=== PATIENT | male | born 1945 | race Caucasian/White ===

== ENCOUNTER 2021-09-18 16:51 | Inpatient (IN) ==
[2021-09-18] MEDS ORDERED: Isovue-370 500 ML BOTTLE IVP ONE (17:34)
[2021-09-18 18:18] LABS: VBG HCO3 22 mEq/L (21-27); VBG PCO2 37 mmHg (41-51); VBG PH 7.38 pH Units (7.32-7.42); VBG PO2 45 mmHg (25-50)
[2021-09-18 18:18] LABS: Basophils % 0.3 %; Eosinophils # 0.2 K/mcL (0.0-0.6); Eosinophils % 1.7 %; Hematocrit 36.2 % (37.5-50.1); Hemoglobin 11.6 g/dL (12.9-16.9); Immature Granulocytes % 1.2 % (0-4); Lymphocytes # 2.3 K/mcL (0.6-4.6); Lymphocytes % 22.4 %; Mean Corpuscular Hemoglobin 28.6 pg (28.0-33.3); Mean Corpuscular Volume 89.4 fL (83.0-100.0); Mean Platelet Volume 10.8 fL (9.4-12.4); Monocytes # 0.8 K/mcL (0.0-1.3); Monocytes % 8.2 %; Neutrophils # 6.7 K/mcL (1.6-8.9); Platelet Count 207 K/mcL (140-400); Red Blood Count 4.05 M/mcL (4.19-5.50); Red Cell Distribution Width 13.8 % (11.5-14.5); Segmented Neutrophils % 66.2 %; White Blood Count 10.1 K/mcL (4.3-11.1)
[2021-09-18 18:33] LABS: Prothrombin Time 11.6 Seconds (9.4-12.1)
[2021-09-18 18:36] LABS: Activated Partial Thrombo Time 30.7 Seconds (26.0-36.0)
[2021-09-18 18:37] LABS: Albumin 3.7 g/dL (3.5-5.7); Albumin/Globulin Ratio 1.5 (1.1-2.2); Bilirubin,Direct 0.1 mg/dL (0.0-0.2); Bilirubin,Indirect 0.3 mg/dL (0.0-1.0); Bilirubin,Total 0.4 mg/dL (0.3-1.0); Calcium 9.7 mg/dL (8.6-10.3); Globulin 2.5 g/dL (2.4-3.5); Potassium 5.2 mEq/L (3.5-5.1); Total Protein 6.2 g/dL (6.4-8.9)
[2021-09-18] MEDS ORDERED: 0.9 % Sodium Chloride 1,000 ML IV ONE (18:52)
[2021-09-18] MEDS ORDERED: Naloxone 0.4 MG/ML INJ IVP PRN (21:01)
[2021-09-18] MEDS ORDERED: Melatonin 3 MG TABLET PO PRN (21:01)
[2021-09-18] MEDS ORDERED: Acetaminophen 325 MG TABLET PO PRN (21:01)
[2021-09-18] MEDS ORDERED: Ondansetron ODT 4 MG TAB.RAPDIS SL PRN (21:01)
[2021-09-18] MEDS ORDERED: 0.9 % Sodium Chloride 1,000 ML IVC ONE (22:09)
[2021-09-18] MEDS ORDERED: D5% in Water 1,000 ML IVC PRN (22:29)
[2021-09-18] MEDS ORDERED: *HR* Dextrose 50 % in Water (Syg) 50 ML SYRINGE IVP PRN (22:29)
[2021-09-18] MEDS ORDERED: Dextrose Gel 15 GM/37.5 ML TUBE PO PRN ×2 (22:29)
[2021-09-18] MEDS: 0.9 % Sodium Chloride 1,000 ML IVC SCH (23:57)
[2021-09-18] MEDS: Piperacillin/Tazobactam 3.375 GM in 0.9 % Sodium Chloride Mini Bag 100 ML IVPB SCH (23:57)
[2021-09-19 01:22] LABS: Bilirubin,Urine Negative (Negative); Blood,Urine Large (Negative); Clarity,Urine Slightly Cloudy (Clear); Color,Urine Red (Yellow); Glucose,Urine (UA) Normal (Normal); Ketones,Urine Negative (Negative); Leukocyte Esterase,Urine Negative (Negative); Nitrite,Urine Negative (Negative); PH,Urine 6.5 pH Units (5.0-8.0); Protein,Urine 100 mg/dL (Neg-Trace); Urobilinogen,Urine Normal (Normal)
[2021-09-19] MEDS: Insulin LISPRO 300 UNITS/3 ML VIAL SUBQ SCH ×5 (01:55→16:29)
[2021-09-19 02:15] LABS: Creatinine,Urine < 1 mg/dL; Sodium, Urine 148.5 mEq/L
[2021-09-19 03:20] LABS: Basophils % 0.3 %; Eosinophils # 0.1 K/mcL (0.0-0.6); Eosinophils % 0.4 %; Hematocrit 31.5 % (37.5-50.1); Lymphocytes # 2.6 K/mcL (0.6-4.6); Lymphocytes % 18.9 %; Mean Corpuscular HGB Conc 30.8 g/dL (31.6-35.5); Mean Corpuscular Hemoglobin 28.1 pg (28.0-33.3); Mean Corpuscular Volume 91.3 fL (83.0-100.0); Mean Platelet Volume 11.5 fL (9.4-12.4); Neutrophils # 9.8 K/mcL (1.6-8.9); Platelet Count 251 K/mcL (140-400); Red Blood Count 3.45 M/mcL (4.19-5.50); Segmented Neutrophils % 72.4 %; White Blood Count 13.6 K/mcL (4.3-11.1)
[2021-09-19 03:21] LABS: Hemoglobin 9.7 g/dL (12.9-16.9)
[2021-09-19 03:34] LABS: Calcium 8.7 mg/dL (8.6-10.3); Potassium 6.1 mEq/L (3.5-5.1)
[2021-09-19 08:44] LABS: Hemoglobin 9.2 g/dL (12.9-16.9)
[2021-09-19] MEDS ORDERED: lisinopriL 20 MG TABLET PO SCH (09:00)
[2021-09-19] MEDS ORDERED: Aspirin Enteric Coated 81 MG Tablet PO SCH (09:00)
[2021-09-19 09:04] LABS: Calcium 8.7 mg/dL (8.6-10.3); Potassium 5.7 mEq/L (3.5-5.1)
[2021-09-19] MEDS: Gabapentin 300 MG CAPSULE PO SCH ×2 (10:08→20:44)
[2021-09-19] MEDS: Fluconazole 100 MG TABLET PO SCH (10:08)
[2021-09-19] MEDS: Finasteride 5 MG TABLET PO SCH (10:09)
[2021-09-19] MEDS: Piperacillin/Tazobactam 3.375 GM in 0.9 % Sodium Chloride Mini Bag 100 ML IVPB SCH ×2 (10:09→16:28)
[2021-09-19] MEDS: Primidone 50 MG TABLET PO SCH (10:09)
[2021-09-19] MEDS: Insulin DETEMIR 100 UNIT/ML X5UNITS SUBQ SCH ×2 (12:14→20:43)
[2021-09-19] MEDS: 0.9 % Sodium Chloride 1,000 ML IVC SCH (16:49)
[2021-09-19] MEDS ORDERED: Fenofibrate 54 MG TABLET PO SCH (21:00)
[2021-09-20] MEDS: Piperacillin/Tazobactam 3.375 GM in 0.9 % Sodium Chloride Mini Bag 100 ML IVPB SCH ×2 (00:07→10:49)
[2021-09-20] MEDS ORDERED: Albumin 25% 25gram/100mL 25 GM/100 ML IV.SOLN IVPB ONE (03:49)
[2021-09-20 04:22] LABS: Basophils % 0.3 %; Eosinophils # 0.1 K/mcL (0.0-0.6); Eosinophils % 1.2 %; Hematocrit 23.6 % (37.5-50.1); Hemoglobin 7.3 g/dL (12.9-16.9); Lymphocytes # 2.7 K/mcL (0.6-4.6); Mean Corpuscular HGB Conc 30.9 g/dL (31.6-35.5); Mean Corpuscular Hemoglobin 28.5 pg (28.0-33.3); Mean Platelet Volume 10.3 fL (9.4-12.4); Monocytes # 0.9 K/mcL (0.0-1.3); Monocytes % 8.1 %; Platelet Count 167 K/mcL (140-400); Red Blood Count 2.56 M/mcL (4.19-5.50); Red Cell Distribution Width 14.2 % (11.5-14.5); Segmented Neutrophils % 64.4 %; White Blood Count 10.9 K/mcL (4.3-11.1)
[2021-09-20 04:24] LABS: Mean Corpuscular Volume 92.2 fL (83.0-100.0)
[2021-09-20] MEDS: 0.9 % Sodium Chloride 1,000 ML IVC SCH ×2 (05:10→17:06)
[2021-09-20 05:13] LABS: Albumin 3.4 g/dL (3.5-5.7); Magnesium 1.8 mg/dL (1.6-2.6); Phosphorous 4.2 mg/dL (2.7-4.5); Potassium 5.2 mEq/L (3.5-5.1)
[2021-09-20] MEDS ORDERED: 0.9 % Sodium Chloride 500 ML IVC ONE (10:44)
[2021-09-20] MEDS: Gabapentin 300 MG CAPSULE PO SCH (10:45)
[2021-09-20] MEDS: Insulin LISPRO 300 UNITS/3 ML VIAL SUBQ SCH ×3 (10:55→17:58)
[2021-09-20] MEDS: Fluconazole 100 MG TABLET PO SCH (10:56)
[2021-09-20] MEDS: Primidone 50 MG TABLET PO SCH (10:56)
[2021-09-20] MEDS: Finasteride 5 MG TABLET PO SCH (10:56)
[2021-09-20] MEDS: Insulin DETEMIR 100 UNIT/ML X5UNITS SUBQ SCH ×2 (11:01→21:42)
[2021-09-20 19:17] LABS: Sodium, Urine 59.2 mEq/L
[2021-09-20 21:14] LABS: Hematocrit 25.8 % (37.5-50.1); Hemoglobin 7.9 g/dL (12.9-16.9)
[2021-09-21 03:10] LABS: Basophils % 0.1 %; Eosinophils # 0.1 K/mcL (0.0-0.6); Hematocrit 23.6 % (37.5-50.1); Hemoglobin 7.5 g/dL (12.9-16.9); Immature Granulocytes % 0.8 % (0-4); Lymphocytes # 2.4 K/mcL (0.6-4.6); Lymphocytes % 34.2 %; Mean Corpuscular HGB Conc 31.8 g/dL (31.6-35.5); Mean Corpuscular Hemoglobin 28.8 pg (28.0-33.3); Mean Corpuscular Volume 90.8 fL (83.0-100.0); Mean Platelet Volume 10.8 fL (9.4-12.4); Monocytes # 0.6 K/mcL (0.0-1.3); Monocytes % 8.3 %; Neutrophils # 3.9 K/mcL (1.6-8.9); Platelet Count 141 K/mcL (140-400); Red Cell Distribution Width 13.7 % (11.5-14.5); Segmented Neutrophils % 54.6 %; White Blood Count 7.1 K/mcL (4.3-11.1)
[2021-09-21 03:25] LABS: Calcium 7.9 mg/dL (8.6-10.3); Magnesium 1.9 mg/dL (1.6-2.6); Phosphorous 2.6 mg/dL (2.7-4.5); Potassium 4.8 mEq/L (3.5-5.1)
[2021-09-21] MEDS: 0.9 % Sodium Chloride 1,000 ML IVC SCH ×2 (06:09→23:15)
[2021-09-21] MEDS: Fluconazole 100 MG TABLET PO SCH (08:04)
[2021-09-21] MEDS: Primidone 50 MG TABLET PO SCH (08:05)
[2021-09-21] MEDS: Finasteride 5 MG TABLET PO SCH (08:05)
[2021-09-21] MEDS: Insulin LISPRO 300 UNITS/3 ML VIAL SUBQ SCH ×3 (08:06→16:49)
[2021-09-21] MEDS: Insulin DETEMIR 100 UNIT/ML X5UNITS SUBQ SCH (08:06)
[2021-09-21] MEDS ORDERED: Gabapentin 300 MG CAPSULE PO SCH (09:00)
[2021-09-21] MEDS ORDERED: Aspirin 81 MG TAB.CHEW PO SCH (09:00)
[2021-09-21 18:00] LABS: Hematocrit 24.6 % (37.5-50.1); Hemoglobin 7.9 g/dL (12.9-16.9)
[2021-09-21] MEDS ORDERED: Lidocaine HCL 4 ML Topical Solution (Laryng-O-Jet Kit Sterile Pak) TP ONE (19:07)
[2021-09-21] MEDS ORDERED: *HR* FentaNYL (PF) 100 MCG/2 ML VIAL ONE (19:09)
[2021-09-21] MEDS ORDERED: *HR* Propofol 200 MG/20 ML VIAL IVP ONE (19:09)
[2021-09-21] MEDS ORDERED: *HR* Succinylcholine 200 MG/10 ML VIAL IVP ONE (19:11)
[2021-09-21] MEDS ORDERED: Lidocaine -MPF 2% 5 ML VIAL ONE (19:11)
[2021-09-21] MEDS ORDERED: *HR* Rocuronium Bromide 50 MG/5 ML VIAL ONE (19:11)
[2021-09-21] MEDS ORDERED: Ondansetron 4 MG/2 ML VIAL ONE (19:11)
[2021-09-21] MEDS ORDERED: Acetaminophen IV 1,000 MG/100 ML BAG IVPB ONE (19:15)
[2021-09-21] MEDS ORDERED: *HR* Vasopressin 20 UNIT/ML VIAL ONE (19:15)
[2021-09-21] MEDS ORDERED: ceFAZolin 2,000 MG in Water for inj. (sterile) 20 ML IVP ONE (19:16)
[2021-09-21] MEDS ORDERED: *HR* Etomidate 40 MG/20 ML VIAL IVP ONE (19:23)
[2021-09-21] MEDS ORDERED: Sugammadex Sodium 200 MG/2 ML VIAL IV ONE (19:48)
[2021-09-21] MEDS ORDERED: Insulin Human Regular 10 UNIT in 0.9 % Sodium Chloride 10 ML SUBQ ONE (20:28)
[2021-09-21] MEDS ORDERED: Insulin Regular, Human 100 UNIT/ML SUBQ ONE (20:47)
[2021-09-21] MEDS ORDERED: Insulin DETEMIR 100 UNIT/ML X5UNITS SUBQ SCH (21:00)
[2021-09-21] MEDS ORDERED: Dextrose Gel 15 GM/37.5 ML TUBE PO PRN ×2 (21:25)
[2021-09-21] MEDS ORDERED: Acetaminophen 325 MG TABLET PO PRN (21:25)
[2021-09-21] MEDS ORDERED: D5% in Water 1,000 ML IVC PRN (21:25)
[2021-09-21] MEDS ORDERED: *HR* Dextrose 50 % in Water (Syg) 50 ML SYRINGE IVP PRN (21:25)
[2021-09-21] MEDS ORDERED: Ondansetron ODT 4 MG TAB.RAPDIS SL PRN (21:25)
[2021-09-21] MEDS ORDERED: Melatonin 3 MG TABLET PO PRN (21:25)
[2021-09-21] MEDS ORDERED: Naloxone 0.4 MG/ML INJ IVP PRN (21:25)
[2021-09-21] MEDS ORDERED: 0.9 % Sodium Chloride 1,000 ML IVC SCH (21:25)
[2021-09-21 22:06] LABS: Hematocrit 25.4 % (37.5-50.1); Hemoglobin 8.1 g/dL (12.9-16.9); Mean Corpuscular HGB Conc 31.9 g/dL (31.6-35.5); Mean Corpuscular Hemoglobin 29.5 pg (28.0-33.3); Mean Corpuscular Volume 92.4 fL (83.0-100.0); Mean Platelet Volume 11.4 fL (9.4-12.4); Platelet Count 151 K/mcL (140-400); Red Blood Count 2.75 M/mcL (4.19-5.50); Red Cell Distribution Width 13.7 % (11.5-14.5); White Blood Count 9.5 K/mcL (4.3-11.1)
[2021-09-22 06:01] LABS: Hematocrit 25.9 % (37.5-50.1); Hemoglobin 8.6 g/dL (12.9-16.9); Mean Corpuscular HGB Conc 33.2 g/dL (31.6-35.5); Mean Corpuscular Hemoglobin 30.2 pg (28.0-33.3); Mean Corpuscular Volume 90.9 fL (83.0-100.0); Mean Platelet Volume 11.4 fL (9.4-12.4); Platelet Count 164 K/mcL (140-400); Red Blood Count 2.85 M/mcL (4.19-5.50); Red Cell Distribution Width 13.6 % (11.5-14.5)
[2021-09-22 06:13] LABS: BUN/Creatinine Ratio 20 (6-26); Blood Urea Nitrogen 19 mg/dL (8-23); Calcium 8.2 mg/dL (8.6-10.3); Carbon Dioxide 24 mEq/L (23-29); Chloride 103 mEq/L (98-107); Glucose 252 mg/dL (70-105); Osmolality,Calculated 285 (280-300); Potassium 5.2 mEq/L (3.5-5.1); Sodium 132 mEq/L (136-145); eGFR For African Americans > 60 (> 60); eGFR For Non-African Americans > 60 (> 60)
[2021-09-22] MEDS ORDERED: Insulin LISPRO 300 UNITS/3 ML VIAL SUBQ SCH (07:30)
[2021-09-22] MEDS ORDERED: Fluconazole 100 MG TABLET PO SCH (09:00)
[2021-09-22] MEDS ORDERED: Primidone 50 MG TABLET PO SCH (09:00)
[2021-09-22] MEDS ORDERED: Gabapentin 300 MG CAPSULE PO SCH (09:00)
[2021-09-22] MEDS ORDERED: Insulin DETEMIR 100 UNIT/ML X5UNITS SUBQ SCH (09:00)
[2021-09-22] MEDS ORDERED: cefTRIAXone 1,000 MG in Water for inj. (sterile) 10 ML IVP SCH (09:00)
[2021-09-22] MEDS ORDERED: Finasteride 5 MG TABLET PO SCH (09:00)
[2021-09-22 11:24] VITALS: TEMP 98.6
[2021-09-22 11:56] VITALS: BP 108/64; PULSE 83; O2SAT 94
== END 2021-09-22 15:51 | disposition home health service (06) | DRG 666 ==
LOC: EMEROOARM 16:51 → 3ANU 16:51 → SUATTDRO 20:03 → 3ANU 21:58
PROVIDERS: ADMIT Internal Medicine; ATTEND Internal Medicine

== ENCOUNTER 2021-10-13 16:39 | Inpatient (IN) ==
[2021-10-13] MEDS ORDERED: Naloxone 0.4 MG/ML INJ IVP PRN (18:44)
[2021-10-13 19:38] LABS: BUN/Creatinine Ratio 39 (6-26); Blood Urea Nitrogen 49 mg/dL (8-23); Calcium 8.8 mg/dL (8.6-10.3); Carbon Dioxide 16 mEq/L (23-29); Chloride 100 mEq/L (98-107); Creatine Kinase 534 Units/L (30-223); Glucose 245 mg/dL (70-105); Osmolality,Calculated 301 (280-300); Potassium 4.4 mEq/L (3.5-5.1); Sodium 135 mEq/L (136-145); eGFR For African Americans > 60 (> 60); eGFR For Non-African Americans 55 (> 60)
[2021-10-13] MEDS ORDERED: 0.9 % Sodium Chloride 1,000 ML IVC SCH (20:00)
[2021-10-13 20:03] LABS: Hematocrit 37.5 % (37.5-50.1); Hemoglobin 11.1 g/dL (12.9-16.9); Mean Corpuscular HGB Conc 29.6 g/dL (31.6-35.5); Mean Corpuscular Hemoglobin 27.2 pg (28.0-33.3); Mean Corpuscular Volume 91.9 fL (83.0-100.0); Mean Platelet Volume 11.7 fL (9.4-12.4); Platelet Count 202 K/mcL (140-400); Red Blood Count 4.08 M/mcL (4.19-5.50); Red Cell Distribution Width 13.8 % (11.5-14.5); White Blood Count 13.2 K/mcL (4.3-11.1)
[2021-10-13] MEDS ORDERED: *HR* Dextrose 50 % in Water (Syg) 50 ML SYRINGE IVP PRN (20:19)
[2021-10-13] MEDS ORDERED: Insulin Regular, Human 100 UNIT/ML IV PRN (20:19)
[2021-10-13] MEDS ORDERED: Vancomycin 1,500 MG/265 ML IV.SOLN IVPB ONE (21:00)
[2021-10-13] MEDS ORDERED: 0.45 % Sodium Chloride w/KCl 20 MEQ/1,000 ML MLS IVC SCH (21:00)
[2021-10-13] MEDS ORDERED: Potassium Chloride Elixir 20 MEQ/15 ML UDC PO STA (21:08)
[2021-10-13 21:41] LABS: Estimated Average Glucose 186 mg/dl; Hemoglobin A1C 8.1 %
[2021-10-13 21:51] LABS: INR 1.1; Prothrombin Time 12.2 Seconds (9.4-12.1)
[2021-10-13 21:53] LABS: VBG HCO3 16 mEq/L (21-27); VBG PCO2 35 mmHg (41-51); VBG PH 7.26 pH Units (7.32-7.42); VBG PO2 60 mmHg (25-50)
[2021-10-13 22:06] LABS: BUN/Creatinine Ratio 41 (6-26); Blood Urea Nitrogen 51 mg/dL (8-23); Calcium 8.7 mg/dL (8.6-10.3); Carbon Dioxide 16 mEq/L (23-29); Chloride 100 mEq/L (98-107); Glucose 242 mg/dL (70-105); Magnesium 2.1 mg/dL (1.6-2.6); Osmolality,Calculated 302 (280-300); Phosphorous 3.2 mg/dL (2.7-4.5); Potassium 4.6 mEq/L (3.5-5.1); Sodium 135 mEq/L (136-145); eGFR For African Americans > 60 (> 60); eGFR For Non-African Americans 57 (> 60)
[2021-10-13] MEDS ORDERED: Isovue-370 500 ML BOTTLE IVP ONE (22:39)
[2021-10-14] MEDS: D5% in 0.45% NACL w KCl 20 MEQ/1,000 ML MLS IVC SCH ×2 (00:27→06:07)
[2021-10-14] MEDS: Piperacillin/Tazobactam 3.375 GM in 0.9 % Sodium Chloride Mini Bag 100 ML IVPB SCH ×3 (00:31→17:42)
[2021-10-14 02:08] LABS: BUN/Creatinine Ratio 41 (6-26); Blood Urea Nitrogen 49 mg/dL (8-23); Calcium 8.4 mg/dL (8.6-10.3); Carbon Dioxide 22 mEq/L (23-29); Chloride 104 mEq/L (98-107); Glucose 87 mg/dL (70-105); Osmolality,Calculated 294 (280-300); Potassium 4.1 mEq/L (3.5-5.1); Sodium 136 mEq/L (136-145); eGFR For African Americans > 60 (> 60); eGFR For Non-African Americans 60 (> 60)
[2021-10-14 02:20] LABS: VBG HCO3 21 mEq/L (21-27); VBG PCO2 41 mmHg (41-51); VBG PH 7.31 pH Units (7.32-7.42); VBG PO2 75 mmHg (25-50)
[2021-10-14 03:18] LABS: Troponin I 0.06 ng/mL (< 0.04)
[2021-10-14 06:15] LABS: BUN/Creatinine Ratio 39 (6-26); Blood Urea Nitrogen 44 mg/dL (8-23); Calcium 8.2 mg/dL (8.6-10.3); Carbon Dioxide 23 mEq/L (23-29); Chloride 105 mEq/L (98-107); Glucose 118 mg/dL (70-105); Osmolality,Calculated 292 (280-300); Phosphorous 1.8 mg/dL (2.7-4.5); Potassium 4.5 mEq/L (3.5-5.1); Sodium 135 mEq/L (136-145); eGFR For African Americans > 60 (> 60); eGFR For Non-African Americans > 60 (> 60)
[2021-10-14 06:15] LABS: Basophils % 0.1 %; Eosinophils % 0.1 %; Hematocrit 30.1 % (37.5-50.1); Hemoglobin 9.5 g/dL (12.9-16.9); Immature Granulocytes % 0.3 % (0-4); Lymphocytes # 1.7 K/mcL (0.6-4.6); Mean Corpuscular HGB Conc 31.6 g/dL (31.6-35.5); Mean Corpuscular Hemoglobin 27.9 pg (28.0-33.3); Mean Corpuscular Volume 88.3 fL (83.0-100.0); Mean Platelet Volume 11.6 fL (9.4-12.4); Monocytes # 0.9 K/mcL (0.0-1.3); Monocytes % 11.8 %; Platelet Count 165 K/mcL (140-400); Red Blood Count 3.41 M/mcL (4.19-5.50); Red Cell Distribution Width 13.7 % (11.5-14.5); Segmented Neutrophils % 65.7 %; White Blood Count 7.7 K/mcL (4.3-11.1)
[2021-10-14] MEDS ORDERED: *HR* Dextrose 50 % in Water (Syg) 50 ML SYRINGE IVP PRN (06:19)
[2021-10-14] MEDS ORDERED: Dextrose Gel 15 GM/37.5 ML TUBE PO PRN ×2 (06:19)
[2021-10-14] MEDS ORDERED: Insulin DETEMIR 100 UNIT/ML X5UNITS SUBQ STA (07:43)
[2021-10-14] MEDS: Finasteride 5 MG TABLET PO SCH (08:40)
[2021-10-14] MEDS: Aspirin Enteric Coated 81 MG Tablet PO SCH (08:41)
[2021-10-14] MEDS: lisinopriL 20 MG TABLET PO SCH (08:41)
[2021-10-14] MEDS: Gabapentin 300 MG CAPSULE PO SCH ×2 (08:41→20:42)
[2021-10-14] MEDS: Metoprolol XL (24 HR) Succ 25 MG TAB.ER.24H PO SCH (08:41)
[2021-10-14] MEDS: Lactobacillus 1 EACH CAP.SPRINK PO SCH ×2 (08:41→20:42)
[2021-10-14] MEDS ORDERED: Aspirin 81 MG TAB.CHEW PO SCH (09:00)
[2021-10-14] MEDS ORDERED: Lactobacillus 1 EACH CAP.SPRINK PO SCH (09:00)
[2021-10-14] MEDS: Insulin LISPRO 300 UNITS/3 ML VIAL SUBQ SCH ×3 (17:16→17:41)
[2021-10-14] MEDS: Ipratropium/Albuterol Neb 3 ML IH SCH ×2 (19:42→23:18)
[2021-10-14] MEDS: Fenofibrate 54 MG TABLET PO SCH (20:42)
[2021-10-14] MEDS: Insulin DETEMIR 100 UNIT/ML X5UNITS SUBQ SCH (20:43)
[2021-10-14] MEDS ORDERED: Vancomycin 1,250 MG/262.5 ML IV.SOLN IVPB SCH (21:00)
[2021-10-14] MEDS ORDERED: Insulin DETEMIR 100 UNIT/ML X5UNITS SUBQ SCH (21:00)
[2021-10-15] MEDS: Piperacillin/Tazobactam 3.375 GM in 0.9 % Sodium Chloride Mini Bag 100 ML IVPB SCH ×3 (00:12→18:52)
[2021-10-15] MEDS: Ipratropium/Albuterol Neb 3 ML IH SCH ×5 (04:03→20:36)
[2021-10-15] MEDS: Lactobacillus 1 EACH CAP.SPRINK PO SCH ×2 (09:37→21:32)
[2021-10-15] MEDS: Metoprolol XL (24 HR) Succ 25 MG TAB.ER.24H PO SCH (09:37)
[2021-10-15] MEDS: Gabapentin 300 MG CAPSULE PO SCH ×2 (09:37→21:33)
[2021-10-15] MEDS: Aspirin Enteric Coated 81 MG Tablet PO SCH (09:37)
[2021-10-15] MEDS: lisinopriL 20 MG TABLET PO SCH (09:37)
[2021-10-15] MEDS: Insulin LISPRO 300 UNITS/3 ML VIAL SUBQ SCH ×5 (09:38→18:52)
[2021-10-15] MEDS: Finasteride 5 MG TABLET PO SCH (09:38)
[2021-10-15] MEDS: Fenofibrate 54 MG TABLET PO SCH (21:32)
[2021-10-15] MEDS: Insulin DETEMIR 100 UNIT/ML X5UNITS SUBQ SCH (21:42)
[2021-10-16] MEDS: Piperacillin/Tazobactam 3.375 GM in 0.9 % Sodium Chloride Mini Bag 100 ML IVPB SCH (00:53)
[2021-10-16] MEDS: Ipratropium/Albuterol Neb 3 ML IH SCH ×7 (04:54→23:55)
[2021-10-16] MEDS ORDERED: Cefepime HCl 2,000 MG in 0.9 % Sodium Chloride Mini Bag 100 ML IVPB SCH (07:45)
[2021-10-16 08:04] LABS: Basophils % 0.2 %; Eosinophils % 0.4 %; Hematocrit 31.1 % (37.5-50.1); Hemoglobin 9.4 g/dL (12.9-16.9); Immature Granulocytes % 0.2 % (0-4); Lymphocytes # 2.1 K/mcL (0.6-4.6); Lymphocytes % 39.5 %; Mean Corpuscular HGB Conc 30.2 g/dL (31.6-35.5); Mean Corpuscular Hemoglobin 27.1 pg (28.0-33.3); Mean Corpuscular Volume 89.6 fL (83.0-100.0); Mean Platelet Volume 11.6 fL (9.4-12.4); Monocytes # 0.5 K/mcL (0.0-1.3); Monocytes % 8.6 %; Neutrophils # 2.7 K/mcL (1.6-8.9); Platelet Count 126 K/mcL (140-400); Red Blood Count 3.47 M/mcL (4.19-5.50); Red Cell Distribution Width 13.3 % (11.5-14.5); Segmented Neutrophils % 51.1 %; White Blood Count 5.2 K/mcL (4.3-11.1)
[2021-10-16 08:15] LABS: BUN/Creatinine Ratio 25 (6-26); Blood Urea Nitrogen 19 mg/dL (8-23); Calcium 8.4 mg/dL (8.6-10.3); Carbon Dioxide 27 mEq/L (23-29); Chloride 104 mEq/L (98-107); Glucose 214 mg/dL (70-105); Osmolality,Calculated 293 (280-300); Sodium 137 mEq/L (136-145); eGFR For African Americans > 60 (> 60); eGFR For Non-African Americans > 60 (> 60)
[2021-10-16] MEDS: levoFLOXacin 750 MG/150 ML 750 MG/150 ML BAG IVPB SCH (09:20)
[2021-10-16] MEDS: Finasteride 5 MG TABLET PO SCH (09:21)
[2021-10-16] MEDS: Aspirin Enteric Coated 81 MG Tablet PO SCH (09:21)
[2021-10-16] MEDS: Lactobacillus 1 EACH CAP.SPRINK PO SCH ×2 (09:21→20:06)
[2021-10-16] MEDS: Insulin LISPRO 300 UNITS/3 ML VIAL SUBQ SCH ×7 (09:21→23:22)
[2021-10-16] MEDS: lisinopriL 20 MG TABLET PO SCH (09:21)
[2021-10-16] MEDS: Gabapentin 300 MG CAPSULE PO SCH ×2 (09:21→20:06)
[2021-10-16] MEDS: Metoprolol XL (24 HR) Succ 25 MG TAB.ER.24H PO SCH (09:21)
[2021-10-16] MEDS: Fenofibrate 54 MG TABLET PO SCH (20:06)
[2021-10-16] MEDS: Insulin DETEMIR 100 UNIT/ML X5UNITS SUBQ SCH (20:07)
[2021-10-16] MEDS ORDERED: D5% in Water 1,000 ML IVC PRN (22:51)
[2021-10-16] MEDS ORDERED: *HR* Dextrose 50 % in Water (Syg) 50 ML SYRINGE IVP PRN (22:51)
[2021-10-16] MEDS ORDERED: Dextrose Gel 15 GM/37.5 ML TUBE PO PRN ×2 (22:51)
[2021-10-16] MEDS: traZODone 50 MG TABLET PO PRN (23:56)
[2021-10-17] MEDS: Ipratropium/Albuterol Neb 3 ML IH SCH ×6 (03:35→23:23)
[2021-10-17 05:25] LABS: Immature Granulocytes % 0.5 % (0-4); Monocytes % 7.5 %; Red Cell Distribution Width 13.2 % (11.5-14.5)
[2021-10-17 05:28] LABS: Basophils % 0.3 %; Eosinophils # 0.1 K/mcL (0.0-0.6); Eosinophils % 0.9 %; Hemoglobin 10.2 g/dL (12.9-16.9); Immature Platelets 6.5 % (1.1-6.1); Lymphocytes % 49.3 %; Mean Corpuscular HGB Conc 30.9 g/dL (31.6-35.5); Mean Corpuscular Hemoglobin 27.7 pg (28.0-33.3); Mean Corpuscular Volume 89.7 fL (83.0-100.0); Mean Platelet Volume 11.2 fL (9.4-12.4); Monocytes # 0.5 K/mcL (0.0-1.3); Platelet Count 140 K/mcL (140-400); Red Blood Count 3.68 M/mcL (4.19-5.50); Segmented Neutrophils % 41.5 %; White Blood Count 6.4 K/mcL (4.3-11.1)
[2021-10-17 05:47] LABS: Lymphocytes # 3.2 K/mcL (0.6-4.6); Neutrophils # 2.7 K/mcL (1.6-8.9)
[2021-10-17 06:21] LABS: BUN/Creatinine Ratio 15 (6-26); Blood Urea Nitrogen 15 mg/dL (8-23); Calcium 9.3 mg/dL (8.6-10.3); Carbon Dioxide 33 mEq/L (23-29); Chloride 104 mEq/L (98-107); Glucose 192 mg/dL (70-105); Osmolality,Calculated 300 (280-300); Potassium 4.3 mEq/L (3.5-5.1); Sodium 142 mEq/L (136-145); eGFR For African Americans > 60 (> 60); eGFR For Non-African Americans > 60 (> 60)
[2021-10-17] MEDS: lisinopriL 20 MG TABLET PO SCH (08:42)
[2021-10-17] MEDS: Lactobacillus 1 EACH CAP.SPRINK PO SCH ×2 (08:42→20:43)
[2021-10-17] MEDS: Finasteride 5 MG TABLET PO SCH (08:42)
[2021-10-17] MEDS: Gabapentin 300 MG CAPSULE PO SCH ×2 (08:42→20:42)
[2021-10-17] MEDS: Aspirin Enteric Coated 81 MG Tablet PO SCH (08:43)
[2021-10-17] MEDS: Primidone 50 MG TABLET PO SCH (08:43)
[2021-10-17] MEDS: Metoprolol XL (24 HR) Succ 25 MG TAB.ER.24H PO SCH (08:43)
[2021-10-17] MEDS: levoFLOXacin 750 MG/150 ML 750 MG/150 ML BAG IVPB SCH (08:48)
[2021-10-17] MEDS: Insulin LISPRO 300 UNITS/3 ML VIAL SUBQ SCH ×8 (08:52→21:05)
[2021-10-17] MEDS ORDERED: Ipratropium/Albuterol Neb 3 ML IH PRN (09:30)
[2021-10-17] MEDS: Fenofibrate 54 MG TABLET PO SCH (20:42)
[2021-10-17] MEDS: Insulin DETEMIR 100 UNIT/ML X5UNITS SUBQ SCH (20:45)
[2021-10-17] MEDS: traZODone 50 MG TABLET PO PRN (21:33)
[2021-10-18] MEDS: Ipratropium/Albuterol Neb 3 ML IH SCH ×6 (04:13→23:52)
[2021-10-18] MEDS: Lactobacillus 1 EACH CAP.SPRINK PO SCH ×2 (08:09→21:00)
[2021-10-18] MEDS: Finasteride 5 MG TABLET PO SCH (08:09)
[2021-10-18] MEDS: Primidone 50 MG TABLET PO SCH (08:09)
[2021-10-18] MEDS: Metoprolol XL (24 HR) Succ 25 MG TAB.ER.24H PO SCH (08:09)
[2021-10-18] MEDS: Aspirin Enteric Coated 81 MG Tablet PO SCH (08:09)
[2021-10-18] MEDS: Gabapentin 300 MG CAPSULE PO SCH ×2 (08:09→21:01)
[2021-10-18] MEDS: lisinopriL 20 MG TABLET PO SCH (08:10)
[2021-10-18] MEDS: Insulin LISPRO 300 UNITS/3 ML VIAL SUBQ SCH ×7 (08:11→21:01)
[2021-10-18] MEDS: levoFLOXacin 750 MG/150 ML 750 MG/150 ML BAG IVPB SCH (14:50)
[2021-10-18] MEDS: Fenofibrate 54 MG TABLET PO SCH (21:00)
[2021-10-18] MEDS: Insulin DETEMIR 100 UNIT/ML X5UNITS SUBQ SCH (21:03)
[2021-10-18] MEDS: traZODone 50 MG TABLET PO PRN (22:35)
[2021-10-19] MEDS: Ipratropium/Albuterol Neb 3 ML IH SCH ×2 (04:05→07:51)
[2021-10-19] MEDS: lisinopriL 20 MG TABLET PO SCH (08:31)
[2021-10-19] MEDS: Gabapentin 300 MG CAPSULE PO SCH ×2 (08:31→20:33)
[2021-10-19] MEDS: Lactobacillus 1 EACH CAP.SPRINK PO SCH ×2 (08:31→20:33)
[2021-10-19] MEDS: Aspirin Enteric Coated 81 MG Tablet PO SCH (08:31)
[2021-10-19] MEDS: Metoprolol XL (24 HR) Succ 25 MG TAB.ER.24H PO SCH (08:32)
[2021-10-19] MEDS: Finasteride 5 MG TABLET PO SCH (08:32)
[2021-10-19] MEDS: Primidone 50 MG TABLET PO SCH (08:32)
[2021-10-19] MEDS: levoFLOXacin 750 MG/150 ML 750 MG/150 ML BAG IVPB SCH (08:40)
[2021-10-19] MEDS: Insulin LISPRO 300 UNITS/3 ML VIAL SUBQ SCH ×7 (08:45→20:38)
[2021-10-19] MEDS ORDERED: Ipratropium/Albuterol Neb 3 ML IH PRN (10:12)
[2021-10-19] MEDS: Fenofibrate 54 MG TABLET PO SCH (20:33)
[2021-10-19] MEDS: traZODone 50 MG TABLET PO PRN (20:34)
[2021-10-19] MEDS: Insulin DETEMIR 100 UNIT/ML X5UNITS SUBQ SCH (20:37)
[2021-10-20 01:48] LABS: Basophils % 0.3 %; Eosinophils # 0.2 K/mcL (0.0-0.6); Eosinophils % 2.7 %; Hematocrit 32.2 % (37.5-50.1); Hemoglobin 9.7 g/dL (12.9-16.9); Immature Granulocytes % 1.1 % (0-4); Lymphocytes # 3.1 K/mcL (0.6-4.6); Lymphocytes % 49.6 %; Mean Corpuscular HGB Conc 30.1 g/dL (31.6-35.5); Mean Corpuscular Hemoglobin 26.5 pg (28.0-33.3); Mean Platelet Volume 11.3 fL (9.4-12.4); Monocytes # 0.7 K/mcL (0.0-1.3); Monocytes % 10.6 %; Neutrophils # 2.2 K/mcL (1.6-8.9); Platelet Count 203 K/mcL (140-400); Red Blood Count 3.66 M/mcL (4.19-5.50); Red Cell Distribution Width 13.3 % (11.5-14.5); Segmented Neutrophils % 35.7 %; White Blood Count 6.3 K/mcL (4.3-11.1)
[2021-10-20 02:05] LABS: BUN/Creatinine Ratio 29 (6-26); Blood Urea Nitrogen 27 mg/dL (8-23); Calcium 8.9 mg/dL (8.6-10.3); Carbon Dioxide 29 mEq/L (23-29); Chloride 102 mEq/L (98-107); Glucose 167 mg/dL (70-105); Osmolality,Calculated 293 (280-300); Sodium 137 mEq/L (136-145); eGFR For African Americans > 60 (> 60); eGFR For Non-African Americans > 60 (> 60)
[2021-10-20] MEDS: Insulin LISPRO 300 UNITS/3 ML VIAL SUBQ SCH ×7 (08:38→21:12)
[2021-10-20] MEDS: Finasteride 5 MG TABLET PO SCH (08:40)
[2021-10-20] MEDS: Aspirin Enteric Coated 81 MG Tablet PO SCH (08:40)
[2021-10-20] MEDS: Gabapentin 300 MG CAPSULE PO SCH ×2 (08:40→21:10)
[2021-10-20] MEDS: lisinopriL 20 MG TABLET PO SCH (08:40)
[2021-10-20] MEDS: Lactobacillus 1 EACH CAP.SPRINK PO SCH ×2 (08:40→21:10)
[2021-10-20] MEDS: Metoprolol XL (24 HR) Succ 25 MG TAB.ER.24H PO SCH (08:40)
[2021-10-20] MEDS: Primidone 50 MG TABLET PO SCH (08:41)
[2021-10-20] MEDS: levoFLOXacin 750 MG/150 ML 750 MG/150 ML BAG IVPB SCH (08:41)
[2021-10-20] MEDS: Insulin DETEMIR 100 UNIT/ML X5UNITS SUBQ SCH (21:11)
[2021-10-20] MEDS: Fenofibrate 54 MG TABLET PO SCH (21:11)
[2021-10-20] MEDS: traZODone 50 MG TABLET PO PRN (21:11)
[2021-10-21] MEDS: Insulin LISPRO 300 UNITS/3 ML VIAL SUBQ SCH ×7 (08:23→20:37)
[2021-10-21] MEDS: Lactobacillus 1 EACH CAP.SPRINK PO SCH ×2 (08:24→20:37)
[2021-10-21] MEDS: Primidone 50 MG TABLET PO SCH (08:24)
[2021-10-21] MEDS: Finasteride 5 MG TABLET PO SCH (08:24)
[2021-10-21] MEDS: Gabapentin 300 MG CAPSULE PO SCH ×2 (08:24→20:37)
[2021-10-21] MEDS: Metoprolol XL (24 HR) Succ 25 MG TAB.ER.24H PO SCH (08:24)
[2021-10-21] MEDS: Aspirin Enteric Coated 81 MG Tablet PO SCH (08:24)
[2021-10-21] MEDS: levoFLOXacin 750 MG TABLET PO SCH (08:24)
[2021-10-21] MEDS: lisinopriL 20 MG TABLET PO SCH (08:24)
[2021-10-21] MEDS: Insulin DETEMIR 100 UNIT/ML X5UNITS SUBQ SCH (20:37)
[2021-10-21] MEDS: traZODone 50 MG TABLET PO PRN (20:37)
[2021-10-21] MEDS: Fenofibrate 54 MG TABLET PO SCH (20:37)
[2021-10-22] MEDS: Primidone 50 MG TABLET PO SCH (08:45)
[2021-10-22] MEDS: Gabapentin 300 MG CAPSULE PO SCH ×2 (08:45→20:45)
[2021-10-22] MEDS: Metoprolol XL (24 HR) Succ 25 MG TAB.ER.24H PO SCH (08:45)
[2021-10-22] MEDS: lisinopriL 20 MG TABLET PO SCH (08:45)
[2021-10-22] MEDS: Finasteride 5 MG TABLET PO SCH (08:45)
[2021-10-22] MEDS: Aspirin Enteric Coated 81 MG Tablet PO SCH (08:45)
[2021-10-22] MEDS: levoFLOXacin 750 MG TABLET PO SCH (08:45)
[2021-10-22] MEDS: Lactobacillus 1 EACH CAP.SPRINK PO SCH ×2 (08:45→20:45)
[2021-10-22] MEDS: Insulin LISPRO 300 UNITS/3 ML VIAL SUBQ SCH ×7 (08:46→20:45)
[2021-10-22] MEDS: traZODone 50 MG TABLET PO PRN (20:45)
[2021-10-22] MEDS: Insulin DETEMIR 100 UNIT/ML X5UNITS SUBQ SCH (20:46)
[2021-10-23] MEDS: Metoprolol XL (24 HR) Succ 25 MG TAB.ER.24H PO SCH (07:02)
[2021-10-23] MEDS: lisinopriL 20 MG TABLET PO SCH (07:03)
[2021-10-23] MEDS: Insulin LISPRO 300 UNITS/3 ML VIAL SUBQ SCH ×7 (07:16→21:09)
[2021-10-23] MEDS: Aspirin Enteric Coated 81 MG Tablet PO SCH (07:17)
[2021-10-23] MEDS: levoFLOXacin 750 MG TABLET PO SCH (07:17)
[2021-10-23] MEDS: Gabapentin 300 MG CAPSULE PO SCH ×2 (07:17→21:07)
[2021-10-23] MEDS: Finasteride 5 MG TABLET PO SCH (07:17)
[2021-10-23] MEDS: Lactobacillus 1 EACH CAP.SPRINK PO SCH ×2 (07:17→21:08)
[2021-10-23] MEDS: Primidone 50 MG TABLET PO SCH (07:17)
[2021-10-23] MEDS: Fenofibrate 54 MG TABLET PO SCH ×2 (21:08)
[2021-10-23] MEDS: Insulin DETEMIR 100 UNIT/ML X5UNITS SUBQ SCH (21:08)
[2021-10-23] MEDS: traZODone 50 MG TABLET PO PRN (21:14)
[2021-10-24] MEDS: Insulin LISPRO 300 UNITS/3 ML VIAL SUBQ SCH ×7 (09:36→21:09)
[2021-10-24] MEDS: Metoprolol XL (24 HR) Succ 25 MG TAB.ER.24H PO SCH (09:37)
[2021-10-24] MEDS: Finasteride 5 MG TABLET PO SCH (09:37)
[2021-10-24] MEDS: Gabapentin 300 MG CAPSULE PO SCH ×2 (09:37→21:06)
[2021-10-24] MEDS: Aspirin Enteric Coated 81 MG Tablet PO SCH (09:37)
[2021-10-24] MEDS: lisinopriL 20 MG TABLET PO SCH (09:37)
[2021-10-24] MEDS: levoFLOXacin 750 MG TABLET PO SCH (09:37)
[2021-10-24] MEDS: Lactobacillus 1 EACH CAP.SPRINK PO SCH ×2 (09:37→21:06)
[2021-10-24] MEDS: Primidone 50 MG TABLET PO SCH (09:37)
[2021-10-24] MEDS: traZODone 50 MG TABLET PO PRN (21:05)
[2021-10-24] MEDS: Fenofibrate 54 MG TABLET PO SCH (21:05)
[2021-10-24] MEDS: Insulin DETEMIR 100 UNIT/ML X5UNITS SUBQ SCH (21:06)
[2021-10-25 07:03] VITALS: O2SAT 96
[2021-10-25] MEDS: Insulin LISPRO 300 UNITS/3 ML VIAL SUBQ SCH ×6 (08:35→16:31)
[2021-10-25] MEDS: Aspirin Enteric Coated 81 MG Tablet PO SCH (08:39)
[2021-10-25] MEDS: Gabapentin 300 MG CAPSULE PO SCH (08:39)
[2021-10-25] MEDS: levoFLOXacin 750 MG TABLET PO SCH (08:40)
[2021-10-25] MEDS: Primidone 50 MG TABLET PO SCH (08:40)
[2021-10-25] MEDS: Finasteride 5 MG TABLET PO SCH (08:40)
[2021-10-25] MEDS: Lactobacillus 1 EACH CAP.SPRINK PO SCH (08:40)
[2021-10-25] MEDS: Metoprolol XL (24 HR) Succ 25 MG TAB.ER.24H PO SCH (08:40)
[2021-10-25] MEDS: lisinopriL 20 MG TABLET PO SCH (08:41)
[2021-10-25 14:47] LABS: Influenza A PCR Negative (Negative); Influenza B PCR Negative (Negative); Resp. Syncytial Virus PCR Negative (Negative)
[2021-10-25 14:55] LABS: SARS-CoV-2 by PCR (In House) Negative (Negative)
[2021-10-25 15:15] VITALS: BP 115/75; PULSE 80; TEMP 97.3
== END 2021-10-25 19:10 | DRG 871 ==
LOC: 2NNU → SUATTDRO 20:34 → 3ANU 10-15 00:36
PROVIDERS: ADMIT Internal Medicine; ATTEND Internal Medicine